=== PATIENT | male | born 1995 | race Two or more races ===

== ENCOUNTER 2017-02-17 17:24 | Emergency (ER) | payer SELFPAY ==
[~2017-02-17] VITALS: Ht 180.3 cm; Wt 72.0 kg
[2017-02-17 17:29] VITALS: BP 116/71
[2017-02-17] MEDS ORDERED: LIDOCAINE 1%, 20ML ONE (17:57)
[2017-02-17] MEDS ORDERED: LIDOCAINE 1%, 20ML SQ ONE (18:00)
[2017-02-17] MEDS ORDERED: HYDROcodone/APAP 5/325 TABLET PO ONE (19:00)
[2017-02-17] MEDS ORDERED: OXYcodone/APAP 5/325MG TABLET ONE (19:01)
[2017-02-17] MEDS ORDERED: HYDROcodone/APAP 5/325 TABLET ONE (19:05)
== END 2017-02-17 19:11 | disposition home or self-care (01) ==
LOC: ED 19:05
DX: L02.01 Cutaneous abscess of face (principal); F12.10 Cannabis abuse, uncomplicated
CPT/HCPCS: 10060; 99283